=== PATIENT | female | born 1955 | race Caucasian/White ===

== ENCOUNTER 2023-08-31 10:19 | Outpatient (REF) | payer MEDICARE, SELFPAY | END 2023-08-31 10:20 | disposition home or self-care (01) | LOC: LBN 10:19 | PROVIDERS: PCP Nurse Practitioner Family; Visit Provider Obstetrics & Gynecology | DX: N94.9 Unspecified condition associated with female genital organs and menstrual cycle (principal) | CPT/HCPCS: 87480; 87510; 87660 ==

== ENCOUNTER 2023-09-15 11:09 | Outpatient (REF) | payer MEDICARE, SELFPAY | END 2023-09-15 11:10 | disposition home or self-care (01) | LOC: LBN 11:09 | PROVIDERS: PCP Nurse Practitioner Family; Visit Provider Obstetrics & Gynecology | DX: N89.8 Other specified noninflammatory disorders of vagina (principal) | CPT/HCPCS: 87480; 87510; 87660 ==

== ENCOUNTER 2023-10-26 09:34 | Outpatient (REF) | payer MEDICARE, SELFPAY | END 2023-10-26 09:35 | disposition home or self-care (01) | LOC: LBN 09:34 | PROVIDERS: PCP Nurse Practitioner Family; Visit Provider Obstetrics & Gynecology | DX: B37.31 Acute candidiasis of vulva and vagina (principal) | CPT/HCPCS: 87480; 87510; 87660 ==

== ENCOUNTER 2024-01-04 10:13 | Outpatient (REF) | payer MEDICARE, SELFPAY | END 2024-01-04 10:14 | disposition home or self-care (01) | LOC: LBN 10:13 | PROVIDERS: PCP Nurse Practitioner Family; Visit Provider Obstetrics & Gynecology | DX: N89.8 Other specified noninflammatory disorders of vagina (principal) | CPT/HCPCS: 87480; 87510; 87660 ==